=== PATIENT | female | born 1935 | race Caucasian/White ===

== ENCOUNTER 2017-11-02 06:42 | Inpatient (IN) | payer OTHER, MEDICAID ==
[~2017-11-02] VITALS: Ht 170.2 cm; Wt 64.8 kg
[~2017-11-02 06:42] MED LIST: ACET325T14 PO; ALPR0.5T10 PO; AMLO10TA2 PO; ASPI-496 PO; ASPI-515 PO; ASPI-650 PO; AZIT500T5 PO; CALC200T3 PO; CEFD300C37 PO; CEFU500T PO; CITA20TA9 PO; DEXL60CA2 PO; DOCU100C33 PO; DOXY100T PO; FLUO20CA8 PO; FURO-93 PO; LAMO100T PO; LEVO500T8 PO; LISI-170 PO; LOVA20TA2 PO; MIRT45TA PO; MULT1TAB96 PO; NICO-485 TD; NITR100C56 PO; NYST5000 PO; OMEP-110 PO; OXYC10TA6 PO; POLY17PO5 PO; POTA10TA6 PO; SIMV10TA3 PO; SOLI10TA2 PO; SULF1TAB24 PO; TIOT18CA PO; TIZA4CAP2 PO; VENL75CA PO
[2017-11-02] MEDS ORDERED: LIDOCAINE 4% CREAM 5GM TUBE TP ONE (07:00)
[2017-11-02] MEDS ORDERED: MORPHINE SULFATE 4 MG/ML, 1ML ONE ×2 (07:13→08:31)
[2017-11-02 07:17] LABS: BASOPHILS # (AUTO) 0.02 x10^3/uL (0-0.1); BASOPHILS % (AUTO) 0 % (0-1); EOSINOPHILS # (AUTO) 0.27 x10^3/uL (0-0.4); EOSINOPHILS % (AUTO) 3 % (1-7); LYMPHOCYTES # (AUTO) 1.48 x10^3/uL (1-3.4); LYMPHOCYTES % (AUTO) 15 % (22-44); MD NO; MEAN CORPUSCULAR HEMOGLOBIN 32.4 pg (27.0-34.8); MEAN CORPUSCULAR HGB CONC 33.3 g/dL (32.4-35.8); MEAN CORPUSCULAR VOLUME 97.2 fL (80-100); MEAN PLATELET VOLUME 7.7 fL (7.4-10.4); MONOCYTES # (AUTO) 0.17 x10^3/uL (0.2-0.8); MONOCYTES % (AUTO) 2 % (2-9); NEUTROPHILS # (AUTO) 8.19 x10^3/uL (1.8-6.8); NEUTROPHILS % (AUTO) 81 % (42-75); PLATELET COUNT 318 x10^3/uL (130-400); RED BLOOD COUNT 5.13 x10^6/uL (3.82-5.3); RED CELL DISTRIBUTION WIDTH 15.7 % (9.6-15.2)
[2017-11-02] MEDS: MORPHINE SULFATE 4 MG/ML, 1ML IVPush PRN ×2 (07:17→08:33)
[2017-11-02] MEDS ORDERED: OXYC10TA6 PO (07:24)
[2017-11-02] MEDS ORDERED: LISI-170 PO (07:24)
[2017-11-02 07:28] LABS: ALBUMIN 3.7 g/dL (3.4-5.0); ANION GAP 7 mmol/L (5-15); CHLORIDE 111 mmol/L (98-107)
[2017-11-02 07:34] LABS: ALANINE AMINOTRANSFERASE 10 U/L (12-78); ALKALINE PHOSPHATASE 103 U/L (45-117); BILIRUBIN,TOTAL 0.5 mg/dL (0.2-1.0); CREATININE 0.83 mg/dL (0.55-1.02); TOTAL PROTEIN 7.4 g/dL (6.4-8.2); TROPONIN I < 0.015 ng/mL (0.000-0.045)
[2017-11-02] MEDS ORDERED: OMNIPAQUE 350 MG/ML, 100ML BOTTLE ONE (09:48)
[2017-11-02] MEDS ORDERED: LABETALOL 5MG/ML, 20ML IVPush PRN (10:30)
[2017-11-02] MEDS: NICOTINE 21 MG/24 HR PATCH.TD24 TD SCH (10:30)
[2017-11-02 12:16] VITALS: BP 169/72
[2017-11-02] MEDS: OXYcodone IR 5MG TABLET PO SCH ×2 (12:45→16:24)
[2017-11-02] MEDS: ASPIRIN 81 MG TABLET EC PO SCH (12:46)
[2017-11-02] MEDS: VALACYCLOVIR 500MG TABLET PO SCH ×2 (12:46→18:43)
[2017-11-02] MEDS ORDERED: IPRATROPIUM 0.5 MG/2.5 ML INHA NPPB SCH (13:00)
[2017-11-02] MEDS ORDERED: IPRATROPIUM 0.5 MG/2.5 ML INHA ONE (14:04)
[2017-11-02] MEDS: IPRATROPIUM 0.5 MG/2.5 ML INHA NPPB SCH ×2 (14:10→20:46)
[2017-11-02 18:39] VITALS: BP 137/74
[2017-11-02 19:04] LABS: MICROSCOPIC AUTO
[2017-11-02] MEDS ORDERED: CEFTRIAXONE PMX 1GM/50ML 50 ML IV SCH (21:00)
[2017-11-02] MEDS ORDERED: CEFTRIAXONE 1,000 MG IM SCH (21:00)
[2017-11-02] MEDS: MIRTAZAPINE 30 MG TAB.RAPDIS PO SCH (21:08)
[2017-11-02] MEDS: LISINOPRIL 20 MG TABLET PO SCH (21:08)
[2017-11-03] MEDS: OXYcodone IR 5MG TABLET PO SCH ×4 (00:04→20:35)
[2017-11-03] MEDS: IPRATROPIUM 0.5 MG/2.5 ML INHA NPPB SCH ×4 (02:13→21:20)
[2017-11-03] MEDS: VALACYCLOVIR 500MG TABLET PO SCH ×3 (02:38→19:36)
[2017-11-03 02:51] VITALS: BP 146/83
[2017-11-03] MEDS: MORPHINE SULFATE 4 MG/ML, 1ML IVPush PRN ×2 (02:53→06:42)
[2017-11-03] MEDS: HEPARIN 5,000 UNITS/ML, 1ML SQ SCH ×3 (06:42→23:19)
[2017-11-03 09:20] VITALS: BP 136/91
[2017-11-03] MEDS: LOVASTATIN 20 MG TABLET PO SCH (10:06)
[2017-11-03] MEDS: ASPIRIN 81 MG TABLET EC PO SCH (10:06)
[2017-11-03] MEDS: LISINOPRIL 20 MG TABLET PO SCH ×2 (10:06→20:35)
[2017-11-03] MEDS: NICOTINE 21 MG/24 HR PATCH.TD24 TD SCH (10:30)
[2017-11-03] MEDS ORDERED: LIDOCAINE 4% CREAM 5GM TUBE TP SCH (15:00)
[2017-11-03 15:08] VITALS: BP 145/80
[2017-11-03 19:11] VITALS: BP 146/60
[2017-11-03] MEDS: MIRTAZAPINE 30 MG TAB.RAPDIS PO SCH (20:35)
[2017-11-03] MEDS ORDERED: GABAPENTIN 100 MG CAPSULE PO SCH (21:00)
[2017-11-04 02:12] VITALS: BP 138/87
[2017-11-04] MEDS: IPRATROPIUM 0.5 MG/2.5 ML INHA NPPB SCH ×2 (03:00→09:00)
[2017-11-04] MEDS ORDERED: CEFTRIAXONE 1,000 MG in SODIUM CHLORIDE 0.9% 50 ML IV SCH (03:00)
[2017-11-04] MEDS: VALACYCLOVIR 500MG TABLET PO SCH ×2 (04:28→11:42)
[2017-11-04] MEDS: HEPARIN 5,000 UNITS/ML, 1ML SQ SCH ×2 (06:09→14:30)
[2017-11-04] MEDS: LISINOPRIL 20 MG TABLET PO SCH (09:12)
[2017-11-04] MEDS: ASPIRIN 81 MG TABLET EC PO SCH (09:12)
[2017-11-04] MEDS: LOVASTATIN 20 MG TABLET PO SCH (09:12)
[2017-11-04] MEDS: OXYcodone IR 5MG TABLET PO SCH ×2 (09:13→17:12)
[2017-11-04] MEDS: NICOTINE 21 MG/24 HR PATCH.TD24 TD SCH (09:14)
[2017-11-04 09:26] VITALS: BP 122/82
[2017-11-04] MEDS ORDERED: DOCU-131 PO (11:10)
[2017-11-04] MEDS ORDERED: VALA500T PO (11:10)
[2017-11-04 13:11] VITALS: BP 111/73
[2017-11-05] MEDS ORDERED: FLUTICASONE/VILANTEROL 100-25MCG/INH INH SCH (09:00)
== END 2017-11-04 19:11 | disposition home or self-care (01) | DRG 596 ==
LOC: ED 10:09 → EDIP 10:10 → ED 10:37 → 3NW 11:30
PROVIDERS: ADMIT Student in an Organized Health Care Education/Training Program; ATTEND Student in an Organized Health Care Education/Training Program
DX: B02.9 Zoster without complications (principal); I31.3 Pericardial effusion (noninflammatory); N39.0 Urinary tract infection, site not specified; I50.30 Unspecified diastolic (congestive) heart failure; F17.200 Nicotine dependence, unspecified, uncomplicated; G89.4 Chronic pain syndrome; J44.9 Chronic obstructive pulmonary disease, unspecified; E10.9 Type 1 diabetes mellitus without complications; E55.9 Vitamin D deficiency, unspecified; D35.01 Benign neoplasm of right adrenal gland; I25.10 Atherosclerotic heart disease of native coronary artery without angina pectoris; I11.0 Hypertensive heart disease with heart failure; Z96.651 Presence of right artificial knee joint; F32.9 Major depressive disorder, single episode, unspecified; Z66 Do not resuscitate; L98.499 Non-pressure chronic ulcer of skin of other sites with unspecified severity; M54.6 Pain in thoracic spine; E78.5 Hyperlipidemia, unspecified; D35.02 Benign neoplasm of left adrenal gland; Z79.4 Long term (current) use of insulin; Z80.1 Family history of malignant neoplasm of trachea, bronchus and lung; Z79.891 Long term (current) use of opiate analgesic; Z92.3 Personal history of irradiation; Z87.440 Personal history of urinary (tract) infections; Z86.19 Personal history of other infectious and parasitic diseases; Z85.3 Personal history of malignant neoplasm of breast; Z86.14 Personal history of Methicillin resistant Staphylococcus aureus infection; Z71.6 Tobacco abuse counseling; Z82.49 Family history of ischemic heart disease and other diseases of the circulatory system; Z82.5 Family history of asthma and other chronic lower respiratory diseases; Z90.49 Acquired absence of other specified parts of digestive tract
CPT/HCPCS: 36415; 71045; 71275; 76770; 80053; 81001; 84484; 85025; 87077; 87086; 87186; 93005; 94640; 96374; 96376; J0696; J1644; J7644; Q9967

== ENCOUNTER 2019-02-18 06:42 | Emergency (ER) | payer MEDICARE, MEDICAID ==
[~2019-02-18] VITALS: Ht 170.2 cm; Wt 62.0 kg
[~2019-02-18 06:42] MED LIST changes: +ACET500T71 PO; -AMLO10TA2 PO; +AMLO10TA8 PO; +CA/D1TAB3 PO; +DOCU-131 PO; +FLUT1BLS3 IH; +FOLI-17 PO; +LAMO100T63 PO; +LEVO750T26 PO; +MECL25TA4 PO; +OMEP20TA62 PO; +RIVA15TA PO; +UMEC1DIS INH; +VALA500T PO; +VENL75CA6 PO
--- NOTE | 2019-02-18 06:49 | NUR ---
THIS 84 YOF BIB [facility] FOR C/O RIGHT WRIST PAIN AND SWELLING NOTED UPON WAKING. PT DENIES ANY RECENT INJURIES OR ILLNESSES.
--- NOTE | 2019-02-18 06:55 | NUR ---
BEDSIDE REPORT TO DARREN PINON.
[2019-02-18] MEDS ORDERED: HYDROcodone/APAP 5/325 TABLET ONE (07:00)
[2019-02-18] MEDS ORDERED: OXYcodone/APAP 5/325MG TABLET PO ONE (07:00)
[2019-02-18] MEDS ORDERED: OXYcodone/APAP 5/325MG TABLET ONE (07:05)
--- NOTE | 2019-02-18 07:09 | NUR ---
patient arrives with pain in right wrist states unknown origin. xray in room. medicated.
[2019-02-18 07:27] LABS: BASOPHILS # (AUTO) 0.04 x10^3/uL (0-0.1); BASOPHILS % (AUTO) 0 % (0-1); EOSINOPHILS # (AUTO) 0.18 x10^3/uL (0-0.4); EOSINOPHILS % (AUTO) 2 % (1-7); LYMPHOCYTES # (AUTO) 1.58 x10^3/uL (1-3.4); LYMPHOCYTES % (AUTO) 15 % (22-44); MD NO; MEAN CORPUSCULAR HEMOGLOBIN 32.4 pg (27.0-34.8); MEAN CORPUSCULAR HGB CONC 33.1 g/dL (32.4-35.8); MEAN CORPUSCULAR VOLUME 97.9 fL (80-100); MEAN PLATELET VOLUME 8.1 fL (7.4-10.4); MONOCYTES # (AUTO) 1.09 x10^3/uL (0.2-0.8); MONOCYTES % (AUTO) 11 % (2-9); NEUTROPHILS # (AUTO) 7.48 x10^3/uL (1.8-6.8); NEUTROPHILS % (AUTO) 72 % (42-75); PLATELET COUNT 299 x10^3/uL (130-400); RED BLOOD COUNT 4.27 x10^6/uL (3.82-5.3); RED CELL DISTRIBUTION WIDTH 15.4 % (9.6-15.2)
[2019-02-18 07:37] LABS: ALANINE AMINOTRANSFERASE 12 U/L (12-78); ALBUMIN 3.1 g/dL (3.4-5.0); ANION GAP 8 mmol/L (5-15); CALCIUM 8.8 mg/dL (8.5-10.1); CHLORIDE 107 mmol/L (98-107)
[2019-02-18 07:40] LABS: ALKALINE PHOSPHATASE 88 U/L (45-117); BILIRUBIN,TOTAL 0.8 mg/dL (0.2-1.0); TOTAL PROTEIN 6.9 g/dL (6.4-8.2)
--- NOTE | 2019-02-18 07:59 | NUR ---
helped patient up to walk but she is very weak on feet. got her on bedpan and she had 300 yellow urine out.
[2019-02-18 08:25] LABS: HCT (SEDRATE) 41.8 % (34.6-47.8)
[2019-02-18 08:42] VITALS: BP 166/88
--- NOTE | 2019-02-18 09:11 | NUR ---
patient splinted. awaiting to discuss her situation with getting her home, [facility]
--- NOTE | 2019-02-18 09:13 | NUR ---
called berenice and David the caregiver at [facility] and he is familiar with her. he is the only one there, he is a caregiver but not nurse. [phone] david states that she doesn't usually work, needs a lot of assistance. she can transfer to wheelchair but that is it. he states he is ready to help her get into her room if we send her there. [phone]
--- NOTE | 2019-02-18 10:20 | NUR ---
TRANSORTED PATIENT IN WHEELCHAIR TO DISCHARGE DESK AND TALKED AT LENGTH TO TECH ABOUT HELPING PATIENT GET INTO [facility] AND THE WELDER AND FITTER HAS VOUCHER TO GET HER TO [facility]. TALKED TO LIYA HER CAREGIVER HE IS EXPECTING HER AND WILL HELP HER GET TO BED. TALKED ABOUT HER WRIST, AND THAT SHE HAD A PERCOCET SO POSSIBLY WEAR HER OXYGEN IF SHE TAKES A DAYTIME NAP. SHOWED UNDERSTANDING.
== END 2019-02-18 10:22 | disposition home or self-care (01) ==
LOC: ED 07:47
DX: M25.531 Pain in right wrist (principal); M79.631 Pain in right forearm; I11.0 Hypertensive heart disease with heart failure; I50.9 Heart failure, unspecified; E78.00 Pure hypercholesterolemia, unspecified; J44.9 Chronic obstructive pulmonary disease, unspecified; F17.200 Nicotine dependence, unspecified, uncomplicated
CPT/HCPCS: 29125; 36415; 80053; 84550; 85025; 85651; 99284

== ENCOUNTER 2019-03-11 07:23 | Inpatient (IN) | payer MEDICARE, MEDICAID ==
[~2019-03-11] VITALS: Ht 170.2 cm; Wt 56.2 kg
[~2019-03-11 07:23] MED LIST changes: +ACET500T64 PO; -ACET500T71 PO; +AZIT500T10 PO; -AZIT500T5 PO
[2019-03-11] MEDS ORDERED: FENTANYL PF 100 MCG/2ML ONE (07:44)
--- NOTE | 2019-03-11 07:58 | NUR ---
LATE NOTE ENTRY DUE TO PT CARE FOR 0738: Pt presents to ED by EMS from [facility] with c/o right shoulder pain that radiates to right arm and substernal chest that is 10/10 pain. Pt has pain with touch and movement of right arm. Pt resting on gurney connected to NIBP cuff, continous pulse ox monitor, and youth nutritional monitor. Bed rails up x 2, call light within reach. Pt has PIV acces obtained [facility] DANCE INSTRUCTOR. Pt provided ice pack for right shoulder and medicaiton per EMAR. Pt on 2L NC to maintain at 96%. No other needs expressed at this time. Pt pending x-ray.
[2019-03-11] MEDS ORDERED: FENTANYL PF 100 MCG/2ML IVPush ONE (08:00)
[2019-03-11] MEDS ORDERED: LISI40TA PO (08:26)
[2019-03-11] MEDS ORDERED: METO25TA35 PO (08:26)
--- NOTE | 2019-03-11 08:54 | NUR ---
Pt states, "my pain isn't better at all, it hasn't gone away." EDMD aware. Ortho being paged by EDMD. No other needs expressed.
[2019-03-11] MEDS ORDERED: LIDOCAINE-MPF 1%, 5ML ONE (09:04)
[2019-03-11] MEDS ORDERED: HYDROmorphone 1 MG/ML, 1ML VIAL ONE (09:30)
--- NOTE | 2019-03-11 09:34 | NUR ---
EDMD at bedsider performing procedure. Provided medications per EDMD verbal order and EMAR. Pt teaful.
[2019-03-11] MEDS ORDERED: HYDROmorphone 1 MG/ML, 1ML INJ IV ONE (10:00)
[2019-03-11 10:21] LABS: BASOPHILS # (AUTO) 0.04 x10^3/uL (0-0.1); BASOPHILS % (AUTO) 0 % (0-1); EOSINOPHILS # (AUTO) 0.05 x10^3/uL (0-0.4); EOSINOPHILS % (AUTO) 0 % (1-7); LYMPHOCYTES # (AUTO) 1.29 x10^3/uL (1-3.4); LYMPHOCYTES % (AUTO) 11 % (22-44); MD NO; MEAN CORPUSCULAR HEMOGLOBIN 30.9 pg (27.0-34.8); MEAN CORPUSCULAR HGB CONC 32.9 g/dL (32.4-35.8); MEAN CORPUSCULAR VOLUME 93.9 fL (80-100); MEAN PLATELET VOLUME 8.4 fL (7.4-10.4); MONOCYTES # (AUTO) 1.25 x10^3/uL (0.2-0.8); MONOCYTES % (AUTO) 11 % (2-9); NEUTROPHILS # (AUTO) 9.12 x10^3/uL (1.8-6.8); NEUTROPHILS % (AUTO) 78 % (42-75); PLATELET COUNT 343 x10^3/uL (130-400); RED BLOOD COUNT 4.21 x10^6/uL (3.82-5.3); RED CELL DISTRIBUTION WIDTH 15.1 % (9.6-15.2)
[2019-03-11 10:30] LABS: INTERNATIONAL NORMALIZED RATIO 1.15 (0.93-1.1)
[2019-03-11 10:32] LABS: ALBUMIN 3.1 g/dL (3.4-5.0); ANION GAP 6 mmol/L (5-15); CALCIUM 8.6 mg/dL (8.5-10.1); CHLORIDE 104 mmol/L (98-107); CREATININE 0.52 mg/dL (0.55-1.02)
--- NOTE | 2019-03-11 10:42 | NUR ---
Provided report to DARREN Mancuso. All questiosn answered. Pt ready to transfer from ED to floor. Pt resting on mukul TORRES. No needs expressed.
--- NOTE | 2019-03-11 11:20 | NUR ---
Pt transfered to floor on [facility] from ED. MELISSA. Pt left with all personal belongings.
[2019-03-11] MEDS ORDERED: LABETALOL 5MG/ML, 20ML IVPush PRN (11:30)
[2019-03-11] MEDS ORDERED: DOCUSATE 100 MG CAPSULE PO PRN (11:30)
[2019-03-11] MEDS ORDERED: ENALAPRILAT 1.25 MG/ML, 2ML IVPush PRN (11:30)
[2019-03-11 11:42] VITALS: BP 163/99
[2019-03-11] MEDS: HYDROmorphone 2 MG/ML, 1ML IVPush PRN ×2 (14:03→19:05)
[2019-03-11] MEDS: ALBUTEROL/IPRATROPIUM 2.5MG/0.5MG, 3 ML NPPB SCH ×2 (14:04→21:02)
[2019-03-11 14:48] VITALS: BP 150/89
[2019-03-11 18:41] VITALS: BP 172/91
[2019-03-11] MEDS: METOPROLOL TARTRATE 25 MG TABLET PO SCH (19:57)
[2019-03-11] MEDS: BUDESONIDE 0.5 MG/2 ML INHA NPPB SCH (21:02)
[2019-03-11] MEDS: OXYcodone IR 5MG TABLET PO PRN (23:40)
[2019-03-12 00:12] VITALS: BP 154/83
[2019-03-12] MEDS: HYDROmorphone 2 MG/ML, 1ML IVPush PRN ×3 (02:00→11:59)
[2019-03-12] MEDS: ALBUTEROL/IPRATROPIUM 2.5MG/0.5MG, 3 ML NPPB SCH ×4 (02:43→20:44)
[2019-03-12] MEDS: BUDESONIDE 0.5 MG/2 ML INHA NPPB SCH ×2 (06:07→20:44)
[2019-03-12 06:22] LABS: MEAN CORPUSCULAR HEMOGLOBIN 30.8 pg (27.0-34.8); MEAN CORPUSCULAR HGB CONC 32.9 g/dL (32.4-35.8); MEAN CORPUSCULAR VOLUME 93.7 fL (80-100); MEAN PLATELET VOLUME 9.9 fL (7.4-10.4); PLATELET COUNT 128 x10^3/uL (130-400); RED CELL DISTRIBUTION WIDTH 14.7 % (9.6-15.2)
[2019-03-12] MEDS: OMEPRAZOLE 20 MG CAPSULE.DR PO SCH (06:22)
[2019-03-12] MEDS: OXYcodone IR 5MG TABLET PO PRN ×2 (06:22→21:30)
[2019-03-12 06:23] LABS: BASOPHILS # (AUTO) 0.08 x10^3/uL (0-0.1); BASOPHILS % (AUTO) 1 % (0-1); EOSINOPHILS # (AUTO) 0.05 x10^3/uL (0-0.4); EOSINOPHILS % (AUTO) 0 % (1-7); LYMPHOCYTES # (AUTO) 1.41 x10^3/uL (1-3.4); LYMPHOCYTES % (AUTO) 11 % (22-44); MD SCAN; MONOCYTES # (AUTO) 1.44 x10^3/uL (0.2-0.8); MONOCYTES % (AUTO) 11 % (2-9); NEUTROPHILS # (AUTO) 9.64 x10^3/uL (1.8-6.8); NEUTROPHILS % (AUTO) 76 % (42-75)
[2019-03-12 07:58] VITALS: BP 127/73
[2019-03-12] MEDS: METOPROLOL TARTRATE 25 MG TABLET PO SCH ×2 (08:34→21:13)
[2019-03-12] MEDS: RIVAROXABAN 15 MG TABLET PO SCH (08:34)
[2019-03-12] MEDS: FOLIC ACID 1 MG TABLET PO SCH (08:34)
[2019-03-12] MEDS: LISINOPRIL 40 MG TABLET PO SCH (08:35)
[2019-03-12] MEDS: ASPIRIN 81 MG TABLET EC PO SCH (08:35)
[2019-03-12] MEDS: VENLAFAXINE 75 MG CAP ER PO SCH (08:35)
[2019-03-12] MEDS: LOVASTATIN 20 MG TABLET PO SCH (08:36)
[2019-03-12] MEDS: CALCIUM/VITAMIN D3 250-125 TABLET PO SCH (08:36)
[2019-03-12] MEDS: POLYETHYLENE GLYCOL 17 GM PACKET PO SCH (08:37)
[2019-03-12] MEDS: Fluticasone/Umeclidin/Vilanter (Trelegy Ellipta 100-62.5-25 HOMEINH SCH (08:37)
[2019-03-12 12:27] LABS: HCT (SEDRATE) 42.8 % (34.6-47.8)
[2019-03-12] MEDS ORDERED: GADOTERATE 7.5 MMOL/15 ML SYR ONE (12:56)
[2019-03-12 14:25] VITALS: BP 119/64
[2019-03-12 20:05] VITALS: BP 132/70
[2019-03-12] MEDS: ACETAMINOPHEN 325 MG TABLET PO PRN (21:31)
[2019-03-13] MEDS: ALBUTEROL/IPRATROPIUM 2.5MG/0.5MG, 3 ML NPPB SCH ×4 (02:00→22:06)
[2019-03-13 02:01] VITALS: BP 116/70
[2019-03-13] MEDS: ACETAMINOPHEN 325 MG TABLET PO PRN ×3 (05:11→21:20)
[2019-03-13] MEDS: OMEPRAZOLE 20 MG CAPSULE.DR PO SCH (05:11)
[2019-03-13 05:31] LABS: BASOPHILS # (AUTO) 0.09 x10^3/uL (0-0.1); BASOPHILS % (AUTO) 1 % (0-1); EOSINOPHILS # (AUTO) 0.14 x10^3/uL (0-0.4); EOSINOPHILS % (AUTO) 2 % (1-7); LYMPHOCYTES # (AUTO) 1.46 x10^3/uL (1-3.4); LYMPHOCYTES % (AUTO) 18 % (22-44); MD NO; MEAN CORPUSCULAR HEMOGLOBIN 30.8 pg (27.0-34.8); MEAN CORPUSCULAR HGB CONC 32.1 g/dL (32.4-35.8); MEAN PLATELET VOLUME 9.4 fL (7.4-10.4); MONOCYTES % (AUTO) 9 % (2-9); NEUTROPHILS % (AUTO) 71 % (42-75); PLATELET COUNT 239 x10^3/uL (130-400); RED BLOOD COUNT 4.11 x10^6/uL (3.82-5.3); RED CELL DISTRIBUTION WIDTH 15.2 % (9.6-15.2)
[2019-03-13] MEDS: BUDESONIDE 0.5 MG/2 ML INHA NPPB SCH ×2 (07:22→22:07)
[2019-03-13 07:30] VITALS: BP 123/79
[2019-03-13] MEDS: POLYETHYLENE GLYCOL 17 GM PACKET PO SCH (08:51)
[2019-03-13] MEDS: VENLAFAXINE 75 MG CAP ER PO SCH (08:53)
[2019-03-13] MEDS: LOVASTATIN 20 MG TABLET PO SCH (08:53)
[2019-03-13] MEDS: FOLIC ACID 1 MG TABLET PO SCH (08:53)
[2019-03-13] MEDS: CALCIUM/VITAMIN D3 250-125 TABLET PO SCH (08:53)
[2019-03-13] MEDS: METOPROLOL TARTRATE 25 MG TABLET PO SCH ×2 (08:53→21:20)
[2019-03-13] MEDS: ASPIRIN 81 MG TABLET EC PO SCH (08:53)
[2019-03-13] MEDS: RIVAROXABAN 15 MG TABLET PO SCH (08:54)
[2019-03-13] MEDS: Fluticasone/Umeclidin/Vilanter (Trelegy Ellipta 100-62.5-25 HOMEINH SCH (08:54)
[2019-03-13] MEDS: LISINOPRIL 40 MG TABLET PO SCH (08:54)
[2019-03-13] MEDS ORDERED: ETHYL CHLORIDE 100% TP ONE (10:30)
[2019-03-13] MEDS ORDERED: LIDOCAINE 1%, 10ML INFIL ONE (10:30)
[2019-03-13 14:30] VITALS: BP 99/63
[2019-03-13] MEDS ORDERED: LIDODERM 5% PATCH TD PRN (16:00)
[2019-03-13 19:11] VITALS: BP 126/81
[2019-03-14 01:05] VITALS: BP 130/81
[2019-03-14] MEDS: ALBUTEROL/IPRATROPIUM 2.5MG/0.5MG, 3 ML NPPB SCH ×3 (02:38→14:40)
[2019-03-14] MEDS: ACETAMINOPHEN 325 MG TABLET PO PRN (05:30)
[2019-03-14] MEDS: OMEPRAZOLE 20 MG CAPSULE.DR PO SCH (05:30)
[2019-03-14 07:44] VITALS: BP 134/79
[2019-03-14] MEDS: BUDESONIDE 0.5 MG/2 ML INHA NPPB SCH (07:45)
[2019-03-14] MEDS: Fluticasone/Umeclidin/Vilanter (Trelegy Ellipta 100-62.5-25 HOMEINH SCH (09:00)
[2019-03-14] MEDS: POLYETHYLENE GLYCOL 17 GM PACKET PO SCH (09:00)
[2019-03-14] MEDS: METOPROLOL TARTRATE 25 MG TABLET PO SCH (09:11)
[2019-03-14] MEDS: LOVASTATIN 20 MG TABLET PO SCH (09:11)
[2019-03-14] MEDS: FOLIC ACID 1 MG TABLET PO SCH (09:11)
[2019-03-14] MEDS: ASPIRIN 81 MG TABLET EC PO SCH (09:12)
[2019-03-14] MEDS: LISINOPRIL 40 MG TABLET PO SCH (09:12)
[2019-03-14] MEDS: CALCIUM/VITAMIN D3 250-125 TABLET PO SCH (09:12)
[2019-03-14] MEDS: VENLAFAXINE 75 MG CAP ER PO SCH (09:12)
[2019-03-14] MEDS: RIVAROXABAN 15 MG TABLET PO SCH (09:12)
[2019-03-14] MEDS ORDERED: DICL100G29 TP (12:11)
[2019-03-14 13:46] VITALS: BP 130/74
[2019-03-14 18:26] VITALS: BP 112/70
== END 2019-03-14 19:45 | disposition home or self-care (01) | DRG 558 ==
LOC: ED 09:25 → EDIP 10:30 → 3N 11:18
PROVIDERS: ADMIT Internal Medicine; ATTEND Internal Medicine
PROC: 0R9J3ZZ Drainage of Right Shoulder Joint, Percutaneous Approach (ICD-10-PCS; principal; 2019-03-11)
DX: M75.101 Unspecified rotator cuff tear or rupture of right shoulder, not specified as traumatic (principal); M19.011 Primary osteoarthritis, right shoulder; J44.9 Chronic obstructive pulmonary disease, unspecified; D72.829 Elevated white blood cell count, unspecified; E88.09 Other disorders of plasma-protein metabolism, not elsewhere classified; F17.200 Nicotine dependence, unspecified, uncomplicated; F32.9 Major depressive disorder, single episode, unspecified; I11.0 Hypertensive heart disease with heart failure; I48.0 Paroxysmal atrial fibrillation; I50.9 Heart failure, unspecified; K59.00 Constipation, unspecified; M10.9 Gout, unspecified; Z66 Do not resuscitate; Z79.4 Long term (current) use of insulin; Z85.3 Personal history of malignant neoplasm of breast; Z86.14 Personal history of Methicillin resistant Staphylococcus aureus infection; Z79.899 Other long term (current) drug therapy; Z90.49 Acquired absence of other specified parts of digestive tract; Z90.10 Acquired absence of unspecified breast and nipple; Z71.6 Tobacco abuse counseling
CPT/HCPCS: 20611; 36415; 71045; 80048; 82040; 84145; 85025; 85610; 85651; 86140; 87070; 87205; 89060; 93005; 94640; 96374; 96375; J1170; J3010; J7620; J7626; A9575; G0378

== ENCOUNTER 2019-04-30 14:50 | Inpatient (IN) | payer MEDICARE, MEDICAID ==
[~2019-04-30] VITALS: Ht 170.2 cm; Wt 63.3 kg
[~2019-04-30 14:50] MED LIST changes: +DICL100G29 TP; +LISI40TA PO; +METO25TA35 PO
--- NOTE | 2019-04-30 15:00 | NUR ---
DILLON CUTLER FROM [facility] FOR RLQ ABD PAIN SINCE 8AM, "I FELT A LUMP IN MY STOMACH AND IT HURTS WHEN I TOUCH IT, NO NAUSEA, NO VOMITING, NO DIARRHEA, I FEEL FINE LAYING HERE UNTIL IT GETS TOUCHED." RLQ TENDER TO PALP WITH MASS NOTED. RUQ ALSO TENDER. CONT PULSE OX, BP, CARDIAC MONITORS IN PLACE. VSS. CALL LIGHT IN REACH. FALL PRECAUTIONS IN PLACE. SIDE RAILS UPX2. WARM BLANKET PROVIDED FOR COMFORT. AWAITING EVALUATION BY ERP. A&OX4. IV ESTABLISED BY EMS SENIOR INTERIOR DESIGNER TO ER, 20G LAC. REPORTS 4-5/10 PAIN WITH PALPATION ONLY, REFUSES NEED FOR PAIN MEDICATION "I DOESN'T HURT JUST LAYING HERE."
--- NOTE | 2019-04-30 15:14 | NUR ---
PA AT BEDSIDE FOR EVALUATION, AWAITING ORDERS.
--- NOTE | 2019-04-30 15:31 | NUR ---
PT DENIES URGE TO URINATE AT THIS TIME "I WENT RIGHT BEFORE WE CAME HERE." DISCUSSED WITH NERI KABA, AWARE, NO NEW ORDERS RECEIVED AT THIS TIME. PT AWAITING CT.
[2019-04-30 15:52] LABS: BASOPHILS # (AUTO) 0.02 x10^3/uL (0-0.1); BASOPHILS % (AUTO) 0 % (0-1); EOSINOPHILS # (AUTO) 0.04 x10^3/uL (0-0.4); EOSINOPHILS % (AUTO) 0 % (1-7); LYMPHOCYTES % (AUTO) 8 % (22-44); MD NO; MEAN CORPUSCULAR HEMOGLOBIN 29.1 pg (27.0-34.8); MEAN CORPUSCULAR HGB CONC 32.5 g/dL (32.4-35.8); MEAN CORPUSCULAR VOLUME 89.6 fL (80-100); MEAN PLATELET VOLUME 8.8 fL (7.4-10.4); MONOCYTES # (AUTO) 0.98 x10^3/uL (0.2-0.8); MONOCYTES % (AUTO) 9 % (2-9); NEUTROPHILS # (AUTO) 9.48 x10^3/uL (1.8-6.8); NEUTROPHILS % (AUTO) 83 % (42-75); PLATELET COUNT 251 x10^3/uL (130-400); RED BLOOD COUNT 4.15 x10^6/uL (3.82-5.3); RED CELL DISTRIBUTION WIDTH 16.6 % (9.6-15.2)
[2019-04-30 16:01] LABS: ALANINE AMINOTRANSFERASE 13 U/L (12-78); ANION GAP 7 mmol/L (5-15); CALCIUM 8.4 mg/dL (8.5-10.1); CHLORIDE 101 mmol/L (98-107)
--- NOTE | 2019-04-30 16:03 | NUR ---
BEDSIDE REPORT AND CARE TO EVARISTO RN'S AT THIS TIME.
[2019-04-30 16:04] LABS: ALKALINE PHOSPHATASE 77 U/L (45-117); BILIRUBIN,TOTAL 0.9 mg/dL (0.2-1.0); CREATININE 0.67 mg/dL (0.55-1.02); TOTAL PROTEIN 6.7 g/dL (6.4-8.2)
--- NOTE | 2019-04-30 16:26 | NUR ---
BEDSIDE REPORT RECEIVED FROM DARREN SOSA. PLAN OF CARE DISCUSSED.
--- NOTE | 2019-04-30 16:45 | NUR ---
STRAIGHT CATH PERFORMED TO OBTAIN CLEAN UA SAMPLE
--- NOTE | 2019-04-30 16:46 | NUR ---
PATIENT TO CT
[2019-04-30] MEDS ORDERED: OMNIPAQUE 350 MG/ML, 100ML BOTTLE ONE (17:16)
[2019-04-30 17:19] LABS: MICROSCOPIC AUTO
[2019-04-30 17:20] LABS: CULTURE INDICATED? YES
[2019-04-30] MEDS ORDERED: CEFTRIAXONE PMX 1GM/50ML 50 ML IV ONE (18:00)
--- NOTE | 2019-04-30 18:03 | NUR ---
ASSISTED WITH MOVING PATIENT TO COMMODE, PATIENT TOLERATED WELL AND WAS ABLE TO TRANSFER SELT TO COMMODE.
--- NOTE | 2019-04-30 18:10 | NUR ---
PATIENT BACK IN BED, ALL MONITORING IN PLACE, CALL LIGHT IN REACH, NEEDS ADDRESSED
[2019-04-30] MEDS ORDERED: CEFTRIAXONE PMX 1GM/50ML 50 ML ONE (18:15)
--- NOTE | 2019-04-30 18:22 | NUR ---
PATIENT MEDICATED PER EMAR, TOLERATED WELL. IV ABX STARTED. NO BLOOD CULTURES NEEDED PER MD ORDERS. URINE SENT AND TO BE CULTURED PRIOR TO ABX ADMIN
--- NOTE | 2019-04-30 19:04 | NUR ---
PATIENT C/O BEING COLD. HEATER APPLIED WITH ADDITIONAL BLANKET. FIXED SPO2 FINGER DEVICE. VSS, IV ABX RUNNING.
--- NOTE | 2019-04-30 19:20 | NUR ---
REPORT GIVEN TO DARREN WATSON. PLAN OF CARE DISCUSSED.
--- NOTE | 2019-04-30 19:31 | NUR ---
EKG COMPLETED PRIOR TO TRANSFER
--- NOTE | 2019-04-30 19:38 | NUR ---
SPOKE WITH THE R HOSPITALIST. DOCTOR AWARE THAT PATIENT IS COMPLAINING SHE IS COLD WITH THE SHAKES. ORAL TEMP 98.1. MD HAS SEEN PATIENT. MD TO ORDER BLOOD CULTURES AND FLUIDS. CALLED SERGIO PRIMARY RN ON TELE 2 FOR UPDATE WAITING FOR RN TO CALL BACK.
--- NOTE | 2019-04-30 19:40 | NUR ---
CALL PLACED TO DARREN WATSON AFTER CONVERSATION WITH [facility] HOSPITALIST ABOUT [facility] WORKUP AND TX, ABOUT PATIENT STATUS. DARREN WATSON AWARE THAT PATIENT IS SHAKING COMPLAINING OF BEING COLD, NORMOTEMP AT 98.1, EKG DONE. NOTIFIED DARREN WATSON PLAN OF CARE PER [facility] HOSPITALIST IS TO DO SEPSIS WORKUP ON THE FLOOR.
[2019-04-30] MEDS ORDERED: ENALAPRILAT 1.25 MG/ML, 2ML IVPush PRN (20:00)
[2019-04-30] MEDS ORDERED: PROMETHAZINE 25 MG/ML, 1ML IM PRN (20:00)
[2019-04-30] MEDS ORDERED: SODIUM CHLORIDE 0.9% 1,000 ML IV SCH ×2 (20:00→22:00)
[2019-04-30] MEDS ORDERED: LABETALOL 5MG/ML, 20ML IVPush PRN (20:00)
[2019-04-30] MEDS ORDERED: POLYETHYLENE GLYCOL 17 GM PACKET PO PRN (20:00)
[2019-04-30] MEDS ORDERED: hydrALAzine 20 MG/ML, 1ML IVPush PRN (20:00)
[2019-04-30] MEDS ORDERED: LORazepam 2 MG/ML, 1ML IVPush ONE (20:00)
[2019-04-30] MEDS ORDERED: ONDANSETRON 2MG/ML, 2ML IVPush PRN (20:00)
[2019-04-30 20:09] VITALS: BP 104/85
[2019-04-30 21:46] VITALS: BP 139/85
[2019-04-30] MEDS: METOPROLOL TARTRATE 25 MG TABLET PO SCH (22:15)
[2019-04-30] MEDS: BUDESONIDE 0.5 MG/2 ML INHA NPPB SCH (22:22)
[2019-04-30] MEDS: ALBUTEROL/IPRATROPIUM 2.5MG/0.5MG, 3 ML NPPB SCH (22:22)
[2019-05-01 00:26] VITALS: BP 135/76
[2019-05-01 05:01] LABS: BASOPHILS # (AUTO) 0.08 x10^3/uL (0-0.1); BASOPHILS % (AUTO) 1 % (0-1); EOSINOPHILS # (AUTO) 0.02 x10^3/uL (0-0.4); EOSINOPHILS % (AUTO) 0 % (1-7); LYMPHOCYTES # (AUTO) 1.29 x10^3/uL (1-3.4); LYMPHOCYTES % (AUTO) 13 % (22-44); MD NO; MEAN CORPUSCULAR HGB CONC 32.4 g/dL (32.4-35.8); MEAN CORPUSCULAR VOLUME 89.5 fL (80-100); MEAN PLATELET VOLUME 8.9 fL (7.4-10.4); MONOCYTES # (AUTO) 1.14 x10^3/uL (0.2-0.8); MONOCYTES % (AUTO) 11 % (2-9); NEUTROPHILS # (AUTO) 7.74 x10^3/uL (1.8-6.8); NEUTROPHILS % (AUTO) 75 % (42-75); PLATELET COUNT 213 x10^3/uL (130-400); RED BLOOD COUNT 3.79 x10^6/uL (3.82-5.3); RED CELL DISTRIBUTION WIDTH 16.3 % (9.6-15.2)
[2019-05-01 05:14] LABS: ALBUMIN 2.7 g/dL (3.4-5.0); ANION GAP 6 mmol/L (5-15); CHLORIDE 104 mmol/L (98-107)
[2019-05-01 05:27] LABS: ALANINE AMINOTRANSFERASE 11 U/L (12-78); ALKALINE PHOSPHATASE 73 U/L (45-117); BILIRUBIN,TOTAL 0.9 mg/dL (0.2-1.0); CREATININE 0.48 mg/dL (0.55-1.02); TOTAL PROTEIN 6.3 g/dL (6.4-8.2)
[2019-05-01] MEDS: CEFTRIAXONE PMX 1GM/50ML 50 ML IV SCH (06:21)
[2019-05-01 07:12] VITALS: BP 128/70
[2019-05-01] MEDS: ALBUTEROL/IPRATROPIUM 2.5MG/0.5MG, 3 ML NPPB SCH ×4 (08:15→20:10)
[2019-05-01] MEDS: ASPIRIN 81 MG TABLET EC PO SCH (08:42)
[2019-05-01] MEDS: POLYETHYLENE GLYCOL 17 GM PACKET PO SCH (08:42)
[2019-05-01] MEDS: VENLAFAXINE 75 MG CAP ER PO SCH (08:42)
[2019-05-01] MEDS: FOLIC ACID 1 MG TABLET PO SCH (08:42)
[2019-05-01] MEDS: LOVASTATIN 20 MG TABLET PO SCH (08:43)
[2019-05-01] MEDS: RIVAROXABAN 15 MG TABLET PO SCH (08:43)
[2019-05-01] MEDS: OMEPRAZOLE 20 MG CAPSULE.DR PO SCH (08:43)
[2019-05-01] MEDS: METOPROLOL TARTRATE 25 MG TABLET PO SCH ×2 (08:43→21:27)
[2019-05-01] MEDS: BUDESONIDE 0.5 MG/2 ML INHA NPPB SCH ×2 (11:00→20:10)
[2019-05-01] MEDS: SODIUM CHLORIDE 0.9% 1,000 ML IV SCH (12:04)
[2019-05-01 13:17] VITALS: BP 133/72
[2019-05-01] MEDS ORDERED: OMNIPAQUE 350 MG/ML, 75ML BOTTLE ONE (16:30)
[2019-05-01 21:24] VITALS: BP 137/75
[2019-05-02 02:18] VITALS: BP 153/75
[2019-05-02] MEDS: morphine SULFATE 10 MG/ML, 1ML IVPush PRN ×3 (03:04→15:51)
[2019-05-02] MEDS: SODIUM CHLORIDE 0.9% 1,000 ML IV SCH (05:39)
[2019-05-02] MEDS: CEFTRIAXONE PMX 1GM/50ML 50 ML IV SCH (05:39)
[2019-05-02] MEDS: ALBUTEROL/IPRATROPIUM 2.5MG/0.5MG, 3 ML NPPB SCH ×4 (06:00→20:46)
[2019-05-02] MEDS: BUDESONIDE 0.5 MG/2 ML INHA NPPB SCH ×2 (07:27→20:46)
[2019-05-02 07:36] LABS: MEAN CORPUSCULAR HEMOGLOBIN 29.1 pg (27.0-34.8); MEAN CORPUSCULAR HGB CONC 32.4 g/dL (32.4-35.8); MEAN CORPUSCULAR VOLUME 89.7 fL (80-100); MEAN PLATELET VOLUME 9.1 fL (7.4-10.4); PLATELET COUNT 214 x10^3/uL (130-400); RED BLOOD COUNT 4.09 x10^6/uL (3.82-5.3); RED CELL DISTRIBUTION WIDTH 16.6 % (9.6-15.2)
[2019-05-02 07:44] LABS: ANION GAP 8 mmol/L (5-15); CALCIUM 8.6 mg/dL (8.5-10.1); CHLORIDE 102 mmol/L (98-107); CREATININE 0.49 mg/dL (0.55-1.02)
[2019-05-02] MEDS ORDERED: DILTIAZEM 5 MG/ML, 5ML IVPush ONE (07:56)
[2019-05-02 08:24] LABS: BASOPHILS # (AUTO) 0.03 x10^3/uL (0-0.1); BASOPHILS % (AUTO) 0 % (0-1); EOSINOPHILS # (AUTO) 0.04 x10^3/uL (0-0.4); EOSINOPHILS % (AUTO) 0 % (1-7); LYMPHOCYTES # (AUTO) 0.59 x10^3/uL (1-3.4); LYMPHOCYTES % (AUTO) 6 % (22-44); MD SCAN; MONOCYTES # (AUTO) 0.92 x10^3/uL (0.2-0.8); MONOCYTES % (AUTO) 9 % (2-9); NEUTROPHILS # (AUTO) 8.28 x10^3/uL (1.8-6.8); NEUTROPHILS % (AUTO) 84 % (42-75)
[2019-05-02] MEDS: LOVASTATIN 20 MG TABLET PO SCH (09:00)
[2019-05-02 09:12] VITALS: BP 152/79
[2019-05-02] MEDS ORDERED: METOPROLOL TARTRATE 50 MG TABLET ONE (10:12)
[2019-05-02] MEDS: OMEPRAZOLE 20 MG CAPSULE.DR PO SCH (10:22)
[2019-05-02] MEDS: METOPROLOL TARTRATE 50 MG TABLET PO SCH ×2 (10:22→18:24)
[2019-05-02] MEDS: ASPIRIN 81 MG TABLET EC PO SCH (10:22)
[2019-05-02] MEDS: LISINOPRIL 20 MG TABLET PO SCH (10:22)
[2019-05-02] MEDS: FOLIC ACID 1 MG TABLET PO SCH (10:22)
[2019-05-02] MEDS: POLYETHYLENE GLYCOL 17 GM PACKET PO SCH (10:22)
[2019-05-02] MEDS: VENLAFAXINE 75 MG CAP ER PO SCH (10:22)
[2019-05-02] MEDS: RIVAROXABAN 15 MG TABLET PO SCH (10:23)
[2019-05-02 10:27] VITALS: BP 140/83
[2019-05-02] MEDS ORDERED: SIMETHICONE 125 MG CHEW TAB PO PRN (12:00)
[2019-05-02 12:44] VITALS: BP 128/72
[2019-05-02 18:24] VITALS: BP 116/72
[2019-05-02 20:05] VITALS: BP 110/66
[2019-05-03 00:43] VITALS: BP 101/67
[2019-05-03] MEDS: CEFTRIAXONE PMX 1GM/50ML 50 ML IV SCH (05:22)
[2019-05-03] MEDS: METOPROLOL TARTRATE 50 MG TABLET PO SCH ×2 (05:23→17:18)
[2019-05-03] MEDS: BUDESONIDE 0.5 MG/2 ML INHA NPPB SCH ×2 (07:10→19:45)
[2019-05-03] MEDS: ALBUTEROL/IPRATROPIUM 2.5MG/0.5MG, 3 ML NPPB SCH ×4 (07:10→19:45)
[2019-05-03 07:41] LABS: ALANINE AMINOTRANSFERASE 8 U/L (12-78); ALBUMIN 2.4 g/dL (3.4-5.0); ANION GAP 3 mmol/L (5-15); CALCIUM 8.5 mg/dL (8.5-10.1); CHLORIDE 106 mmol/L (98-107); CREATININE 0.52 mg/dL (0.55-1.02)
[2019-05-03 07:44] LABS: ALKALINE PHOSPHATASE 69 U/L (45-117); BILIRUBIN,TOTAL 0.6 mg/dL (0.2-1.0); TOTAL PROTEIN 6.1 g/dL (6.4-8.2)
[2019-05-03 07:48] VITALS: BP 122/71
[2019-05-03] MEDS ORDERED: FUROSEMIDE 20 MG/2 ML IV SCH (09:00)
[2019-05-03] MEDS: POLYETHYLENE GLYCOL 17 GM PACKET PO SCH (10:00)
[2019-05-03] MEDS: ASPIRIN 81 MG TABLET EC PO SCH (10:00)
[2019-05-03] MEDS: FOLIC ACID 1 MG TABLET PO SCH (10:01)
[2019-05-03] MEDS: RIVAROXABAN 15 MG TABLET PO SCH (10:01)
[2019-05-03] MEDS: LISINOPRIL 20 MG TABLET PO SCH (10:01)
[2019-05-03] MEDS: OMEPRAZOLE 20 MG CAPSULE.DR PO SCH (10:01)
[2019-05-03] MEDS: LOVASTATIN 20 MG TABLET PO SCH (10:01)
[2019-05-03] MEDS: VENLAFAXINE 75 MG CAP ER PO SCH (10:01)
[2019-05-03 12:58] VITALS: BP 109/71
[2019-05-03 19:36] VITALS: BP 117/73
[2019-05-04 01:13] VITALS: BP 130/81
[2019-05-04] MEDS ORDERED: CEFDINIR 300 MG CAPSULE PO SCH ×2 (05:00→09:00)
[2019-05-04 05:36] VITALS: BP 135/72
[2019-05-04] MEDS: METOPROLOL TARTRATE 50 MG TABLET PO SCH ×2 (05:39→17:29)
[2019-05-04] MEDS: ALBUTEROL/IPRATROPIUM 2.5MG/0.5MG, 3 ML NPPB SCH ×2 (06:52→14:51)
[2019-05-04] MEDS: BUDESONIDE 0.5 MG/2 ML INHA NPPB SCH (06:52)
[2019-05-04 07:24] VITALS: BP 139/80
[2019-05-04] MEDS: ASPIRIN 81 MG TABLET EC PO SCH (09:33)
[2019-05-04] MEDS: OMEPRAZOLE 20 MG CAPSULE.DR PO SCH (09:33)
[2019-05-04] MEDS: RIVAROXABAN 15 MG TABLET PO SCH (09:34)
[2019-05-04] MEDS: FOLIC ACID 1 MG TABLET PO SCH (09:34)
[2019-05-04] MEDS: VENLAFAXINE 75 MG CAP ER PO SCH (09:34)
[2019-05-04] MEDS: LISINOPRIL 20 MG TABLET PO SCH (09:34)
[2019-05-04] MEDS: POLYETHYLENE GLYCOL 17 GM PACKET PO SCH (09:34)
[2019-05-04] MEDS: LOVASTATIN 20 MG TABLET PO SCH (09:34)
[2019-05-04] MEDS ORDERED: METO50TA82 PO (12:56)
[2019-05-04] MEDS ORDERED: CEFD300C37 PO (12:56)
[2019-05-04 14:30] VITALS: BP 143/84
== END 2019-05-04 18:07 | disposition home or self-care (01) | DRG 871 ==
LOC: ED 16:52 → EDIP 18:38 → 4WST 19:43
PROVIDERS: ADMIT Family Medicine; ATTEND Family Medicine
PROC: 0T9B70Z Drainage of Bladder with Drainage Device, Via Natural or Artificial Opening (ICD-10-PCS; principal; 2019-04-30)
DX: A41.9 Sepsis, unspecified organism (principal); J96.21 Acute and chronic respiratory failure with hypoxia; N10 Acute pyelonephritis; I31.3 Pericardial effusion (noninflammatory); E46 Unspecified protein-calorie malnutrition; R64 Cachexia; D68.69 Other thrombophilia; I50.32 Chronic diastolic (congestive) heart failure; I48.0 Paroxysmal atrial fibrillation; E78.00 Pure hypercholesterolemia, unspecified; N28.1 Cyst of kidney, acquired; E78.5 Hyperlipidemia, unspecified; F17.210 Nicotine dependence, cigarettes, uncomplicated; F32.9 Major depressive disorder, single episode, unspecified; I11.0 Hypertensive heart disease with heart failure; I35.1 Nonrheumatic aortic (valve) insufficiency; J44.9 Chronic obstructive pulmonary disease, unspecified; J84.10 Pulmonary fibrosis, unspecified; K21.9 Gastro-esophageal reflux disease without esophagitis; K59.00 Constipation, unspecified; N27.0 Small kidney, unilateral; Z66 Do not resuscitate; Z79.01 Long term (current) use of anticoagulants; Z79.4 Long term (current) use of insulin; Z79.82 Long term (current) use of aspirin; Z85.3 Personal history of malignant neoplasm of breast; Z86.14 Personal history of Methicillin resistant Staphylococcus aureus infection; Z90.49 Acquired absence of other specified parts of digestive tract; Z68.21 Body mass index [BMI] 21.0-21.9, adult
CPT/HCPCS: 36415; 71045; 71260; 74021; 74177; 80048; 80053; 81001; 82962; 83690; 84443; 85025; 87040; 87077; 87086; 87186; 93005; 93306; 94640; 96365; G0378; J0696; J7620; J7626; Q9967; J2060; J2270; J7030

== ENCOUNTER → 2019-06-12 | Outpatient (CLI) | payer MEDICARE, MEDICAID ==
[~2019-06-12] MED LIST changes: +FLUO20CA23 PO; -FLUO20CA8 PO; -LAMO100T PO; +LAMO100T8 PO; +MECL-101 PO; -MECL25TA4 PO; +METO50TA82 PO; +SIMV10TA18 PO; -SIMV10TA3 PO; -VALA500T PO; +VALA500T8 PO
== END | disposition home or self-care (01) ==
LOC: CVU 13:09
PROVIDERS: ATTEND Internal Medicine Cardiovascular Disease
DX: I08.3 Combined rheumatic disorders of mitral, aortic and tricuspid valves (principal); I31.3 Pericardial effusion (noninflammatory); I48.91 Unspecified atrial fibrillation; I50.32 Chronic diastolic (congestive) heart failure
CPT/HCPCS: 93308; 93321; 93325

== ENCOUNTER 2019-09-25 15:11 | Observation (INO) | payer MEDICARE, MEDICAID ==
[~2019-09-25] VITALS: Ht 167.6 cm; Wt 61.9 kg
[2019-09-25 16:07] LABS: MEAN CORPUSCULAR HEMOGLOBIN 29.9 pg (27.0-34.8); MEAN CORPUSCULAR HGB CONC 32.9 g/dL (32.4-35.8); MEAN CORPUSCULAR VOLUME 90.9 fL (80-100); MEAN PLATELET VOLUME 8.4 fL (7.4-10.4); PLATELET COUNT 311 x10^3/uL (130-400); RED BLOOD COUNT 4.24 x10^6/uL (3.82-5.3); RED CELL DISTRIBUTION WIDTH 17.1 % (9.6-15.2)
[2019-09-25 16:18] LABS: ALANINE AMINOTRANSFERASE 10 U/L (12-78); ALBUMIN 2.7 g/dL (3.4-5.0); ANION GAP 6 mmol/L (5-15); CALCIUM 8.3 mg/dL (8.5-10.1); CHLORIDE 105 mmol/L (98-107); CREATININE 0.76 mg/dL (0.55-1.02)
[2019-09-25 16:23] LABS: ALKALINE PHOSPHATASE 78 U/L (45-117); TOTAL PROTEIN 6.4 g/dL (6.4-8.2); TROPONIN I 0.034 ng/mL (0.000-0.045)
[2019-09-25 16:49] LABS: BASOPHILS # (AUTO) 0.09 x10^3/uL (0-0.1); BASOPHILS % (AUTO) 1 % (0-1); EOSINOPHILS # (AUTO) 0.07 x10^3/uL (0-0.4); EOSINOPHILS % (AUTO) 1 % (1-7); LYMPHOCYTES # (AUTO) 1.28 x10^3/uL (1-3.4); LYMPHOCYTES % (AUTO) 9 % (22-44); MD SCAN; MONOCYTES # (AUTO) 1.43 x10^3/uL (0.2-0.8); MONOCYTES % (AUTO) 11 % (2-9); NEUTROPHILS # (AUTO) 10.86 x10^3/uL (1.8-6.8); NEUTROPHILS % (AUTO) 79 % (42-75)
[2019-09-25 16:52] LABS: MICROSCOPIC INDICATED
[2019-09-25] MEDS ORDERED: CEFTRIAXONE PMX 1GM/50ML 50 ML ONE (17:15)
[2019-09-25] MEDS ORDERED: CEFTRIAXONE PMX 1GM/50ML 50 ML IV ONE (17:30)
--- NOTE | 2019-09-25 17:52 | NUR ---
completion of ems 1000 ns bolus.
[2019-09-25] MEDS ORDERED: SODIUM CHLORIDE 0.9%, 500ML IVBOLUS ONE (18:00)
[2019-09-25] MEDS ORDERED: SODIUM CHLORIDE FLUSH 10ML SYR IVF ONE (18:00)
[2019-09-25] MEDS ORDERED: ACETAMINOPHEN 325 MG TABLET PO PRN (18:30)
[2019-09-25] MEDS ORDERED: LABETALOL 5MG/ML, 20ML IVPush PRN (18:30)
[2019-09-25] MEDS ORDERED: DIPHENHYDRAMINE 12.5MG/5ML, 10ML UDC PO PRN (18:30)
[2019-09-25] MEDS ORDERED: morphine SULFATE 10 MG/ML, 1ML IVPush PRN (18:30)
[2019-09-25] MEDS ORDERED: POLYETHYLENE GLYCOL 17 GM PACKET PO PRN (18:30)
[2019-09-25] MEDS ORDERED: HYDROcodone/APAP 5/325 TABLET PO PRN (18:30)
[2019-09-25] MEDS ORDERED: ONDANSETRON ODT 4 MG PO PRN (18:30)
[2019-09-25] MEDS ORDERED: ENALAPRILAT 1.25 MG/ML, 2ML IVPush PRN (18:30)
[2019-09-25] MEDS: NICOTINE 7 MG/24 HR PATCH.TD24 TD SCH (18:30)
[2019-09-25] MEDS ORDERED: DICLOFENAC SODIUM 2 GM MC PRN (19:00)
[2019-09-25] MEDS ORDERED: POTASSIUM CHLORIDE 40 MEQ in SODIUM CHLORIDE 0.9% 500 ML IV ONE (20:30)
[2019-09-25] MEDS ORDERED: ALBUTEROL/IPRATROPIUM 2.5MG/0.5MG, 3 ML NPPB PRN (21:30)
[2019-09-25 21:39] VITALS: BP 162/100
[2019-09-25] MEDS: LACTATED RINGERS 1,000 ML IV SCH (23:08)
[2019-09-25 23:55] LABS: TROPONIN I 0.021 ng/mL (0.000-0.045)
[2019-09-26 01:29] VITALS: BP 155/91
[2019-09-26 05:12] LABS: BASOPHILS # (AUTO) 0.05 x10^3/uL (0-0.1); BASOPHILS % (AUTO) 0 % (0-1); EOSINOPHILS # (AUTO) 0.15 x10^3/uL (0-0.4); EOSINOPHILS % (AUTO) 1 % (1-7); LYMPHOCYTES # (AUTO) 1.17 x10^3/uL (1-3.4); LYMPHOCYTES % (AUTO) 10 % (22-44); MD NO; MEAN CORPUSCULAR HEMOGLOBIN 29.5 pg (27.0-34.8); MEAN CORPUSCULAR HGB CONC 32.3 g/dL (32.4-35.8); MEAN CORPUSCULAR VOLUME 91.3 fL (80-100); MEAN PLATELET VOLUME 8.4 fL (7.4-10.4); MONOCYTES # (AUTO) 0.95 x10^3/uL (0.2-0.8); MONOCYTES % (AUTO) 8 % (2-9); NEUTROPHILS # (AUTO) 9.02 x10^3/uL (1.8-6.8); NEUTROPHILS % (AUTO) 80 % (42-75); PLATELET COUNT 300 x10^3/uL (130-400); RED CELL DISTRIBUTION WIDTH 16.8 % (9.6-15.2)
[2019-09-26 05:19] LABS: ANION GAP 4 mmol/L (5-15); CALCIUM 8.3 mg/dL (8.5-10.1); CHLORIDE 108 mmol/L (98-107); CREATININE 0.57 mg/dL (0.55-1.02)
[2019-09-26 05:23] LABS: TROPONIN I 0.028 ng/mL (0.000-0.045)
[2019-09-26] MEDS: METOPROLOL TARTRATE 50 MG TAB PO SCH ×2 (06:28→17:59)
[2019-09-26 07:09] VITALS: BP 178/91
[2019-09-26] MEDS: SENNA/DOCUSATE TABLET PO SCH (09:00)
[2019-09-26] MEDS: Fluticasone/Umeclidin/Vilanter (Trelegy Ellipta 100-62.5-25 INH SCH (09:00)
[2019-09-26] MEDS: OMEPRAZOLE 20 MG CAPSULE.DR PO SCH (09:26)
[2019-09-26] MEDS: ASPIRIN 81 MG TABLET EC PO SCH (09:27)
[2019-09-26] MEDS: LISINOPRIL 40 MG TABLET PO SCH (09:27)
[2019-09-26] MEDS: RIVAROXABAN 15 MG TABLET PO SCH (09:27)
[2019-09-26] MEDS: VENLAFAXINE 75 MG CAP ER PO SCH (09:27)
[2019-09-26 13:41] VITALS: BP 162/87
[2019-09-26] MEDS: LACTATED RINGERS 1,000 ML IV SCH (14:23)
[2019-09-26] MEDS: NICOTINE 7 MG/24 HR PATCH.TD24 TD SCH (15:39)
[2019-09-26] MEDS ORDERED: CEFTRIAXONE PMX 1GM/50ML 50 ML IV SCH (17:00)
[2019-09-26 17:58] VITALS: BP 160/90
[2019-09-26 18:43] VITALS: BP 132/72
[2019-09-26] MEDS: LOVASTATIN 20 MG TABLET PO SCH (20:52)
[2019-09-26 23:38] VITALS: BP 166/74
[2019-09-27] MEDS: LACTATED RINGERS 1,000 ML IV SCH (02:36)
[2019-09-27 05:10] VITALS: BP 152/80
[2019-09-27 07:10] VITALS: BP 135/78
[2019-09-27] MEDS ORDERED: CEFD300C37 PO (10:10)
[2019-09-27] MEDS: METOPROLOL TARTRATE 50 MG TAB PO SCH (10:19)
[2019-09-27] MEDS: RIVAROXABAN 15 MG TABLET PO SCH (10:19)
[2019-09-27] MEDS: SENNA/DOCUSATE TABLET PO SCH (10:19)
[2019-09-27] MEDS: LOVASTATIN 20 MG TABLET PO SCH (10:19)
[2019-09-27] MEDS: LISINOPRIL 40 MG TABLET PO SCH (10:20)
[2019-09-27] MEDS: Fluticasone/Umeclidin/Vilanter (Trelegy Ellipta 100-62.5-25 INH SCH (10:20)
[2019-09-27] MEDS: VENLAFAXINE 75 MG CAP ER PO SCH (10:20)
[2019-09-27] MEDS: OMEPRAZOLE 20 MG CAPSULE.DR PO SCH (10:20)
[2019-09-27] MEDS: ASPIRIN 81 MG TABLET EC PO SCH (10:20)
== END 2019-09-27 13:08 | disposition home or self-care (01) ==
LOC: ED 16:39 → EDIP 17:16 → INTOOBSV 17:16 → 3N 17:48 → EDIP 18:10 → 5SO 20:22 → DCLOUNGE 09-27 12:59
PROVIDERS: ADMIT Family Medicine; ATTEND Family Medicine
DX: N30.91 Cystitis, unspecified with hematuria (principal); R07.89 Other chest pain; Z87.09 Personal history of other diseases of the respiratory system; I11.0 Hypertensive heart disease with heart failure; I50.9 Heart failure, unspecified; E87.6 Hypokalemia; I48.0 Paroxysmal atrial fibrillation; J44.9 Chronic obstructive pulmonary disease, unspecified; F32.9 Major depressive disorder, single episode, unspecified; K59.00 Constipation, unspecified; J96.01 Acute respiratory failure with hypoxia; E78.5 Hyperlipidemia, unspecified; D72.829 Elevated white blood cell count, unspecified; G93.40 Encephalopathy, unspecified; F03.90 Unspecified dementia, unspecified severity, without behavioral disturbance, psychotic disturbance, mood disturbance, and anxiety; F17.210 Nicotine dependence, cigarettes, uncomplicated; Z79.82 Long term (current) use of aspirin; Z79.51 Long term (current) use of inhaled steroids; Z79.899 Other long term (current) drug therapy; Z85.3 Personal history of malignant neoplasm of breast
CPT/HCPCS: 36415; 71045; 80048; 80053; 81001; 83690; 83735; 84100; 84443; 84484; 85025; 87040; 87077; 87086; 87186; 93005; 96365; 96366; 96367; 97162; 97165; 99285; G0378; J0696; J3480; J7040; J7120; 96361

== ENCOUNTER 2020-04-11 17:29 | Emergency (ER) | payer MEDICARE, MEDICAID ==
[~2020-04-11] VITALS: Ht 170.2 cm; Wt 62.3 kg
[~2020-04-11 17:29] MED LIST changes: +AMLO-211 PO; -AMLO10TA8 PO; +CEPH-376 PO; +MIRA50TA PO
--- NOTE | 2020-04-11 18:20 | NUR ---
PATIENT WHEELCHAIR DEPENDANT, BIB [facility] FOR L NECK PAIN, DENIES TRAUMA, NUMBNESS, TINGLING, WEAKNESS OF UPPER EXTREMITIES.
[2020-04-11] MEDS ORDERED: METHOCARBAMOL 500 MG TABLET PO ONE (19:30)
[2020-04-11] MEDS ORDERED: ACETAMINOPHEN 325 MG TABLET PO ONE (19:30)
[2020-04-11] MEDS ORDERED: LIDODERM 5% PATCH TD ONE ×2 (19:30→19:51)
--- NOTE | 2020-04-11 19:30 | NUR ---
PATIENT RESTING LLR HOLDING HEAD WITH HER HANDS IN POC, VSS, WILL CONTINUE TO MONITOR.
[2020-04-11] MEDS ORDERED: METHOCARBAMOL 500 MG TABLET ONE (19:52)
[2020-04-11] MEDS ORDERED: ACETAMINOPHEN 325 MG TABLET ONE (19:52)
[2020-04-11] MEDS ORDERED: KETOROLAC 30 MG/1 ML IM ONE (20:30)
--- NOTE | 2020-04-11 20:30 | NUR ---
PATIENT SITTING ON STRETCHER, VSS, STATES NO CHANGES IN PAIN WITH USE OF COLD COMPRESS. CALLBELL WITHIN REACH, WILL CONTINUE TO MONITOR.
--- NOTE | 2020-04-11 20:48 | NUR ---
PATIENT REPORTS DECREASE IN PAIN AFTER MEDICATION AND APPLICATION OF LIDODERM PATCH, NAD, CALLBELL WITHIN REACH WILL CONTINUE TO MONITOR
[2020-04-11] MEDS ORDERED: KETOROLAC 30 MG/1 ML ONE (21:09)
[2020-04-11 21:25] VITALS: BP 160/79
--- NOTE | 2020-04-11 21:30 | NUR ---
ATTEMPTED TO REACH LIYA AT [facility] WITH NUMBER PROVIDED. PHONE NUMBER REACHES FAX MACHINE ONLY.
--- NOTE | 2020-04-11 21:35 | NUR ---
ATTEMPTED TO REACH LIYA AT [facility] WITHOUT SUCCESS
--- NOTE | 2020-04-11 21:45 | NUR ---
ATTEMPTED TO REACH [facility] WITHOUT SUCCESS
--- NOTE | 2020-04-11 22:00 | NUR ---
ATTEMPTED TO REACH LIYA AT [facility] WITHOUT SUCCESS
--- NOTE | 2020-04-11 22:25 | NUR ---
ATTEMPTED TO REACH LIYA AT [facility] WITHOUT SUCCESS
--- NOTE | 2020-04-11 22:43 | NUR ---
ATTEMPTED TO REACH [facility] FOR DISCHARGE REPORT WITHOUT SUCCESS
--- NOTE | 2020-04-11 22:50 | NUR ---
PATIENT RETURNED TO [facility]IA [facility]. RETURNED APPROPRIATE INFORMATION POST DISCHARGE TEACHING, MEDICATION AND FOLLOW UP TEACHING.
== END 2020-04-11 23:52 ==
LOC: ED 18:28
DX: M54.2 Cervicalgia (principal); J44.9 Chronic obstructive pulmonary disease, unspecified; I11.0 Hypertensive heart disease with heart failure; I50.9 Heart failure, unspecified; M19.90 Unspecified osteoarthritis, unspecified site; Z85.3 Personal history of malignant neoplasm of breast; Z90.49 Acquired absence of other specified parts of digestive tract
CPT/HCPCS: 96372; 99284; J1885

== ENCOUNTER 2020-08-16 09:09 | Emergency (ER) | payer MEDICARE, MEDICAID ==
[~2020-08-16] VITALS: Ht 170.2 cm; Wt 67.0 kg
[~2020-08-16 09:09] MED LIST changes: -ASPI-515 PO; -ASPI-650 PO; +ASPI-963 PO; +ASPI325T20 PO; -FOLI-17 PO; +FOLI1TAB32 PO; -LISI40TA PO; +LISI40TA9 PO; +SULF-23 PO; -SULF1TAB24 PO
--- NOTE | 2020-08-16 09:47 | NUR ---
Break RN note: Pt provided non-skid socks and assisted to BSC to void. Approximately 300mL cloudy, foul smelling urine voided. Pt was provided clean catch wipes, pt unable to participate fully with clean catch process so contaminated urine specimen is likely. Discusssed with ERP. Pt to be straight cathed for urine sample. Pt assisted back to bed and positioned for comfort. Continuous oxygen and BP Monitors remain in place, all safety measures observed.
[2020-08-16 09:52] LABS: BASOPHILS % (AUTO) 1 % (0-1); EOSINOPHILS % (AUTO) 3 % (1-7); LYMPHOCYTES % (AUTO) 14 % (22-44); MEAN CORPUSCULAR HEMOGLOBIN 30.8 pg (27.0-34.8); MEAN CORPUSCULAR HGB CONC 32.8 g/dL (32.4-35.8); MEAN PLATELET VOLUME 8.1 fL (7.4-10.4); MONOCYTES % (AUTO) 8 % (2-9); NEUTROPHILS % (AUTO) 75 % (42-75); PLATELET COUNT 358 x10^3/uL (130-400); RED BLOOD COUNT 4.82 x10^6/uL (3.82-5.3); RED CELL DISTRIBUTION WIDTH 14.5 % (9.6-15.2)
[2020-08-16 09:55] LABS: MD NO
[2020-08-16 10:00] LABS: ALBUMIN 3.7 g/dL (3.4-5.0); ANION GAP 5 mmol/L (5-15); CHLORIDE 105 mmol/L (98-107)
--- NOTE | 2020-08-16 10:24 | NUR ---
Task RN note: Pt straight cathed per order. Urine sample obtained, labeled at bedside, sent to lab. Pt tearful, verbal reassurance provided.
[2020-08-16 10:39] LABS: MICROSCOPIC INDICATED
[2020-08-16] MEDS ORDERED: CEFTRIAXONE 1,000 MG in DEXTROSE 5% 50 ML IVPB ONE (12:00)
[2020-08-16 12:34] VITALS: BP 170/107
--- NOTE | 2020-08-16 12:35 | NUR ---
TASK RN: PT AMBULATORY W/ ASSISTANCE TO COMMODE. PT TEARFUL AND CRYING IN PAIN. PT CONTINUES TO STATE "I DON'T WANT TO BE HERE I WANT TO GO HOME". PT REPOSITIONED ON [place].
--- NOTE | 2020-08-16 12:49 | NUR ---
PT [facility]. [facility].
--- NOTE | 2020-08-16 13:12 | NUR ---
report to caregiver. awaiting [facility]. pt dressed, dc papers put in her purse. as
--- NOTE | 2020-08-16 13:26 | NUR ---
throughput RN note: dc orders received. David (pt's caregiver) verified pt's home adress to be [phone] [facility] unable to transport pt from [facility] home. caregiver notified pt is to be transported back via [email or web address] (pickup at approx 1330 from [facility]), caregiver confirmed that he will be home and ready for pt's return. report given to [email or web address] transport person. primary RN alyce aware of pickup time.
== END 2020-08-16 14:19 | disposition home or self-care (01) ==
LOC: ED 09:59
DX: S16.1XXA Strain of muscle, fascia and tendon at neck level, initial encounter (principal); S39.012A Strain of muscle, fascia and tendon of lower back, initial encounter; N30.00 Acute cystitis without hematuria; R51.9 Headache, unspecified; I71.4 Abdominal aortic aneurysm, without rupture; I96 Gangrene, not elsewhere classified; I45.10 Unspecified right bundle-branch block; J44.9 Chronic obstructive pulmonary disease, unspecified; I11.0 Hypertensive heart disease with heart failure; I50.9 Heart failure, unspecified; I48.91 Unspecified atrial fibrillation; E78.00 Pure hypercholesterolemia, unspecified; E87.6 Hypokalemia; Z85.3 Personal history of malignant neoplasm of breast; Z90.49 Acquired absence of other specified parts of digestive tract; Z90.10 Acquired absence of unspecified breast and nipple; W01.0XXA Fall on same level from slipping, tripping and stumbling without subsequent striking against object, initial encounter; Y93.89 Activity, other specified; Y92.89 Other specified places as the place of occurrence of the external cause; Y99.8 Other external cause status
CPT/HCPCS: 36415; 70450; 72072; 72110; 72125; 73630; 80048; 81001; 82040; 85025; 87077; 87086; 87186; 93005; 96365; 96366; 99285; J0696

== ENCOUNTER 2021-01-16 08:53 | Emergency (ER) | payer MEDICARE, MEDICAID ==
[~2021-01-16] VITALS: Ht 170.2 cm; Wt 62.3 kg
[2021-01-16] MEDS ORDERED: SODIUM CHLORIDE FLUSH 10ML SYR IVF ONE (09:30)
[2021-01-16] MEDS ORDERED: METOPROLOL 1 MG/ML, 5ML IVPush ONE (10:15)
[2021-01-16 10:18] LABS: MICROSCOPIC INDICATED
[2021-01-16 10:21] LABS: BASOPHILS % (AUTO) 1 % (0-1); EOSINOPHILS % (AUTO) 1 % (1-7); LYMPHOCYTES % (AUTO) 10 % (22-44); MEAN CORPUSCULAR HGB CONC 33.9 g/dL (32.4-35.8); MEAN PLATELET VOLUME 7.8 fL (7.4-10.4); MONOCYTES % (AUTO) 10 % (2-9); NEUTROPHILS % (AUTO) 78 % (42-75); PLATELET COUNT 323 x10^3/uL (130-400); RED BLOOD COUNT 4.32 x10^6/uL (3.82-5.3); RED CELL DISTRIBUTION WIDTH 14.4 % (9.6-15.2)
[2021-01-16] MEDS ORDERED: LISINOPRIL 20 MG TABLET ONE (10:29)
[2021-01-16] MEDS ORDERED: METOPROLOL 1 MG/ML, 5ML ONE (10:30)
[2021-01-16] MEDS ORDERED: LISINOPRIL 40 MG TABLET PO SCH (10:30)
[2021-01-16 10:32] LABS: ALANINE AMINOTRANSFERASE 15 U/L (12-78); ALBUMIN 3.5 g/dL (3.4-5.0); ANION GAP 5 mmol/L (5-15); CALCIUM 8.5 mg/dL (8.5-10.1); CHLORIDE 105 mmol/L (98-107)
[2021-01-16 10:36] LABS: CREATININE 0.71 mg/dL (0.55-1.02)
[2021-01-16 10:37] LABS: ALKALINE PHOSPHATASE 104 U/L (45-117); BILIRUBIN,TOTAL 1.1 mg/dL (0.2-1.0); TOTAL PROTEIN 7.7 g/dL (6.4-8.2); TROPONIN I 0.016 ng/mL (0.000-0.045)
[2021-01-16] MEDS ORDERED: OMNIPAQUE 350 MG/ML, 100ML BOTTLE ONE (11:30)
[2021-01-16] MEDS ORDERED: ACETAMINOPHEN 325 MG TABLET PO ONE (12:00)
[2021-01-16] MEDS ORDERED: ACETAMINOPHEN 325 MG TABLET ONE (12:05)
--- NOTE | 2021-01-16 13:02 | NUR ---
THROUGPUT: Loaded [employer] SET UP AT 1400
[2021-01-16 14:05] VITALS: BP 159/78
--- NOTE | 2021-01-16 14:13 | NUR ---
ASSUMED CARE OF PATIENT. REPORT GIVEN FROM DARREN BORREGO
--- NOTE | 2021-01-16 14:40 | NUR ---
PT DISCHARGED WITH [facility] TO HOME
== END 2021-01-16 14:43 | disposition home or self-care (01) ==
LOC: ED 09:23
DX: N30.01 Acute cystitis with hematuria (principal); I71.4 Abdominal aortic aneurysm, without rupture; I31.3 Pericardial effusion (noninflammatory); I48.91 Unspecified atrial fibrillation
CPT/HCPCS: 36415; 51701; 71045; 74177; 80053; 81001; 83605; 83880; 84484; 85025; 87040; 87077; 87086; 93005; 99285; Q9967; 87186; P9612